=== PATIENT | female | born 1970 | race American Indian/Alaskan Native ===

== ENCOUNTER 2016-10-02 22:13 | Observation (INO) | payer OTHER ==
[2016-10-02 22:13] VITALS: BMI 49.0
[2016-10-02 22:29] VITALS: O2SAT 100
[2016-10-02] MEDS ORDERED: Sodium Chloride 0.9% 1,000 ML IV ONE (22:50)
[2016-10-02 23:08] LABS: HCG,QUALITATIVE URINE NEGATIVE (NEGATIVE)
[2016-10-02] MEDS ORDERED: Iohexol 240 (50 ml) PO ONE (23:08)
[2016-10-02 23:09] LABS: BASO # 0.1 K/uL (0.0-0.2); EOS # 0.1 K/uL (0.0-0.7); EOS % 1.1 % (0.0-4.0); HEMOGLOBIN 8.6 g/dL (11.0-16.0); LYMPH # 1.8 K/uL (1.0-4.3); LYMPH % 35.7 % (20.0-40.0); MEAN CORPUSCULAR HEMOGLOBIN 22.5 pg (27.0-31.0); MEAN CORPUSCULAR HGB CONC 31.3 g/dL (33.0-37.0); MEAN PLATELET VOLUME 7.4 fL (7.2-11.7); MONO # 0.5 K/uL (0.0-0.8); MONO % 10.6 % (0.0-10.0); NEUT # 2.6 K/uL (1.8-7.0); NEUT % 51.6 % (50.0-75.0); NRBC % 0.1 % (0.0-2.0); RBC 3.81 Mil/uL (3.80-5.20); RED CELL DISTRIBUTION WIDTH 16.2 % (11.5-14.5); WHITE BLOOD COUNT 5.1 K/uL (4.8-10.8)
[2016-10-02 23:10] LABS: MEAN CELL VOLUME 71.8 fL (81.0-99.0)
--- NOTE | 2016-10-02 23:10 | C.PDOC ---
History Of Present Illness 46 year old female who presents to the ER with a complaint of a persistent, localized, generalized headache and LUQ pain for the past 2 weeks. Patient states the onset began after finishing her recent menstrual cycle. Patient reports he has Hx of similar headaches in the past "every day"; he has not tried any medication for the pain. Patient has a Hx of gastric sleeve, fibroids , and iron deficiency anemia. Denies fever, nausea, vomiting, changes in bowel movement, or constipation. CO PERSIST GEN DYKES, LUQ PAIN X 2 WEEKS. PS ONSET AFTER FINISHING RECENT MENSES. PAIN LOCALIZED CONSTANT PERSISTENT. HO GASTRIC SLEEVE, FIBROIDS, IRON DEF ANEMIA. NO FEVER, NV. NO CHANGE IN BM, DENIES CONSTIPATION. DYKES SIM TO PRIOR, STATES HAS THEM "EVERY DAY". NO MEDS TRIED. CURRENT DYKES UNCH FROM USUAL. EXAM MILD DIST NONTOXIC HEENT NO PHOTOPHOBIA; DRY MMM NECK NO NUCHAL RIGID, SUPPLE ABD +LUQ TEND MOD SOFT NO R/G REMAINDE RNEG Time Seen by Provider: 10/02/16 22:48 Chief Complaint (Nursing): Abnormal Labs History Per: Patient History/Exam Limitations: no limitations Onset/Duration Of Symptoms: Days Current Symptoms Are (Timing): Still Present Recent travel outside of the [place]: No Past Medical History Reviewed: Historical Data, Nursing Documentation, Vital Signs Vital Signs: Last Vital Signs Temp 98.3 F 10/03/16 01:46 Pulse 81 10/03/16 01:13 Resp 18 10/03/16 01:13 BP 117/79 10/03/16 01:13 Pulse Ox 100 10/03/16 01:32 - Medical History PMH: Anemia Surgical History: Cholecystectomy, Endoscopy - [facility] Procedures D & C POST DELIVERY (06/23/99) ESOPHAGOGASTRODUODENOSCOPY [EGD] W/CLOSED BIOPSY (06/04/13) MONITORING NOS (01/22/97) INJECT/INFUSE ELECTROLYT (01/05/13) INJECT/INFUSE NEC (01/05/13) LAPAROSCOPIC VERTICAL (SLEEVE) GASTRECTOMY (08/20/13) MANUAL ASSIST DELIV NEC (01/22/97) OTHER GASTROSCOPY (08/20/13) Family History: States: Unknown Family Hx - Social History Hx Tobacco Use: No Hx Alcohol Use: No Hx Substance Use: No - Immunization History Hx Tetanus Toxoid Vaccination: No Hx Influenza Vaccination: No Hx Pneumococcal Vaccination: No Review Of Systems Except As Marked, All Systems Reviewed And Found Negative. Constitutional: Negative for: Fever, Chills Gastrointestinal: Negative for: Nausea, Vomiting, Diarrhea, Constipation Neurological: Positive for: Headache Physical Exam - Physical Exam Appears: Non-toxic, Other (Mild distress) Skin: Normal Color, Warm, Dry Head: Atraumatic, Normacephalic Eye(s): bilateral: Normal Inspection, PERRL, EOMI, Other (No photophobia) Ear(s): Bilateral: Normal Oral Mucosa: Dry Throat: Normal, No Erythema, No Exudate Neck: Normal, Supple Chest: Symmetrical, No Tenderness Cardiovascular: Rhythm Regular, No Murmur Respiratory: Other (Speaking in complete sentences, no respiratory distress) Gastrointestinal/Abdominal: Soft, Tenderness (LUQ), No Guarding, No Rebound Neurological/Psych: Oriented x3, Normal Speech, Normal Cognition ED Course And Treatment - Laboratory Results Result Diagrams: 10/02/16 23:00 10/02/16 23:00 O2 Sat by Pulse Oximetry: 100 (Room air) Pulse Ox Interpretation: Normal - CT Scan/US CT abd/pel Other Rad Studies (CT/US): Read By Radiologist, Radiology Report Reviewed CT/US Interpretation: EXAM: CT Abdomen and Pelvis With Intravenous Contrast. CLINICAL HISTORY: 46 years old, female; Pain; Abdominal pain; Flank; Left upper quadrant (luq); Prior surgery; Surgery. date: 6+ months; Surgery type: Gastric sleeve 2 years ago; Additional info: Luq pain ho gastric sleeve. TECHNIQUE: Axial computed tomography images of the abdomen and pelvis with intravenous contrast. This CT. exam was performed using one or more of the following dose reduction techniques: automated. exposure control, adjustment of the mA and/or kV according to patient size, and/or use of iterative. reconstruction technique. Coronal and sagittal reformatted images were created and reviewed. CONTRAST: 100 mL of OMNIPAQUE 350 administered intravenously. COMPARISON: No relevant prior studies available. FINDINGS: Lower thorax: Minimal atelectasis. Apparent asymmetric 1.1 x 1.3 cm subareolar density LEFT. breast. Apparent prominent superficial vessel LEFT breast. ABDOMEN: Liver: Unremarkable. No mass. Gallbladder and bile ducts: Cholecystectomy. No ductal dilation. Pancreas: No ductal dilation. No mass. Spleen: No splenomegaly. Adrenals: No mass. Kidneys and ureters: No mass. No hydronephrosis. Stomach and bowel: Postsurgical changes of stomach. No definite mural thickening. No. obstruction. Appendix: Normal caliber. No inflammation. PELVIS: Bladder: Unremarkable. Reproductive: Lobulated, heterogeneous uterus. Small ovarian follicles. ABDOMEN and PELVIS: Intraperitoneal space: Small free fluid within pelvis. No free air. Bones/joints: Postsurgical changes of lumbar spine. No acute fracture. Soft tissues: Unremarkable. Vasculature: Unremarkable. No aneurysm. Lymph nodes: No pathologically enlarged lymph nodes. IMPRESSION: 1. Probable fibroid uterus. 2. Small pelvic ascites. 3. Possible LEFT breast lesion. Recommend mammography. 4. Incidental/non-acute findings are described above. CT Head Other Rad Studies (CT/US): Read By Radiologist, Radiology Report Reviewed CT/US Interpretation: EXAM: CT Head Without Intravenous Contrast. CLINICAL HISTORY: 46 years old, female; Condition or disease; Headache; Headache not specified. TECHNIQUE: Axial computed tomography images of the head/brain without intravenous contrast. This CT exam. was performed using one or more of the following dose reduction techniques: automated exposure. control, adjustment of the mA and/or kV according to patient size, and/or use of iterative. reconstruction technique. COMPARISON: No relevant prior studies available. FINDINGS: Brain: No intracranial hemorrhage. No mass. No definite edema. Ventricles: No hydrocephalus. Bones/joints: No acute fracture. Soft tissues: Unremarkable. Sinuses: No acute sinusitis. Mastoid air cells: No mastoid effusion. Orbits: Unremarkable as visualized. IMPRESSION: 1. No acute intracranial abnormality. 2. Incidental/non-acute findings are described above. Medical Decision Making Medical Decision Making: Plan: * CT abd/pel * CT Head * IV fluids ED OBSERVATION Discharge: Yes Date of observation admission: 10/02/16 Time of observation admission: 22:30 - Observation admission statement Patient is being placed in observation because:: DYKES, ABD PAIN, ANEMIA - Goals of Observation Goals of observation are:: NEG ACUTE ABD, SX IMPROVE - Progress Note Progress Note: 10/03/16 01:11 NOW REQUESTING PAIN MED FOR DYKES AND ABD PAIN. NO VOMITING. PENDING CT 10/03/16 01:31 PS HAD RECENT HEAVY MENSES. KNOWN FIBROID. PENDING [facility] EVAL. RISKS BENEFITS BLOOD TRANSFUSION DISCUSSED, DOES NOT WISH TRANSFUSION. DOES NOT TAKE IRON SUPPLEMENTS, STATES REQUIRED PRIOR IRON IV INFUSION. WISHES DC HOME Disposition Counseled Patient/Family Regarding: Studies Performed, Diagnosis, Need For Followup - Disposition Disposition: HOME/ ROUTINE Disposition Time: : Condition: IMPROVED - Clinical Impression Clinical Impression: Abdominal pain, Fibroid, Anemia, Headache - Scribe Statement The provider has reviewed the documentation as recorded by the Gisselibcindy Tamayo All medical record entries made by the Chung were at my direction and personally dictated by me. I have reviewed the chart and agree that the record accurately reflects my personal performance of the history, physical exam, medical decision making, and the department course for this patient. I have also personally directed, reviewed, and agree with the discharge instructions and disposition.
[2016-10-02 23:12] LABS: SQUAMOUS EPITHIAL 11 /hpf (0-5); URINE BACTERIA RARE (<OCC); URINE BILIRUBIN NEGATIVE (NEGATIVE); URINE BLOOD NEGATIVE (NEGATIVE); URINE CLARITY Hazy (Clear); URINE COLOR Yellow (YELLOW); URINE GLUCOSE (UA) NORMAL (Normal); URINE LEUKOCYTE ESTERASE NEG Leu/uL (Negative); URINE NITRATE NEGATIVE (NEGATIVE); URINE PROTEIN NEGATIVE (NEGATIVE)
[2016-10-02] MEDS ORDERED: Iohexol 240 (50 ml) ONE (23:12)
[2016-10-02] MEDS ORDERED: Sodium Chloride 0.9% 1,000 ML ONE (23:12)
[2016-10-02 23:15] LABS: ALBUMIN 3.7 g/dL (3.5-5.0)
[2016-10-02 23:18] LABS: AST/SGOT 23 U/L (14-36); BLOOD UREA NITROGEN 13 mg/dL (7-17); GFR AFRICAN-AMERICAN > 60; GFR NON-AFRICAN AMERICAN > 60
[2016-10-02 23:19] LABS: ALT/SGPT 23 U/L (9-52); CALCIUM 8.5 mg/dl (8.6-10.4)
[2016-10-03] MEDS ORDERED: Iohexol 350mg/ml 100 ML ONE (00:12)
[2016-10-03 01:13] VITALS: BP 117/79; PULSE 81; RESP 18
--- NOTE | 2016-10-03 01:15 | CT ---
EXAM: CT Head Without Intravenous Contrast CLINICAL HISTORY: 46 years old, female; Condition or disease; Headache; Headache not specified TECHNIQUE: Axial computed tomography images of the head/brain without intravenous contrast. This CT exam was performed using one or more of the following dose reduction techniques: automated exposure control, adjustment of the mA and/or kV according to patient size, and/or use of iterative reconstruction technique. COMPARISON: No relevant prior studies available. FINDINGS: Brain: No intracranial hemorrhage. No mass. No definite edema. Ventricles: No hydrocephalus. Bones/joints: No acute fracture. Soft tissues: Unremarkable. Sinuses: No acute sinusitis. Mastoid air cells: No mastoid effusion. Orbits: Unremarkable as visualized. IMPRESSION: 1. No acute intracranial abnormality. 2. Incidental/non-acute findings are described above.
--- NOTE | 2016-10-03 01:21 | CT ---
EXAM: CT Abdomen and Pelvis With Intravenous Contrast CLINICAL HISTORY: 46 years old, female; Pain; Abdominal pain; Flank; Left upper quadrant (luq); Prior surgery; Surgery date: 6+ months; Surgery type: Gastric sleeve 2 years ago; Additional info: Luq pain ho gastric sleeve TECHNIQUE: Axial computed tomography images of the abdomen and pelvis with intravenous contrast. This CT exam was performed using one or more of the following dose reduction techniques: automated exposure control, adjustment of the mA and/or kV according to patient size, and/or use of iterative reconstruction technique. Coronal and sagittal reformatted images were created and reviewed. CONTRAST: 100 mL of OMNIPAQUE 350 administered intravenously. COMPARISON: No relevant prior studies available. FINDINGS: Lower thorax: Minimal atelectasis. Apparent asymmetric 1.1 x 1.3 cm subareolar density LEFT breast. Apparent prominent superficial vessel LEFT breast. ABDOMEN: Liver: Unremarkable. No mass. Gallbladder and bile ducts: Cholecystectomy. No ductal dilation. Pancreas: No ductal dilation. No mass. Spleen: No splenomegaly. Adrenals: No mass. Kidneys and ureters: No mass. No hydronephrosis. Stomach and bowel: Postsurgical changes of stomach. No definite mural thickening. No obstruction. Appendix: Normal caliber. No inflammation. PELVIS: Bladder: Unremarkable. Reproductive: Lobulated, heterogeneous uterus. Small ovarian follicles. ABDOMEN and PELVIS: Intraperitoneal space: Small free fluid within pelvis. No free air. Bones/joints: Postsurgical changes of lumbar spine. No acute fracture. Soft tissues: Unremarkable. Vasculature: Unremarkable. No aneurysm. Lymph nodes: No pathologically enlarged lymph nodes. IMPRESSION: 1. Probable fibroid uterus. 2. Small pelvic ascites. 3. Possible LEFT breast lesion. Recommend mammography. 4. Incidental/non-acute findings are described above.
[2016-10-03 01:46] VITALS: TEMP 98.3
== END 2016-10-03 01:32 | disposition home or self-care (01) ==
LOC: C.ER 22:13 → C.9OBSV 22:30
PROVIDERS: ADMIT Emergency Medicine; ATTEND Emergency Medicine
DX: D25.9 Leiomyoma of uterus, unspecified (principal); D50.9 Iron deficiency anemia, unspecified; Z98.84 Bariatric surgery status
CPT/HCPCS: 70450; 74177; 80053; 81001; 83690; 84703; 85025; 86850; 86900; 96360; 99282; G0378; J2765; J3030; J7040; Q9966; Q9967